=== PATIENT | female | born 1975 | race Caucasian/White ===

== ENCOUNTER → 2017-08-25 07:20 | Outpatient (CLI) | payer OTHER, SELFPAY ==
--- NOTE | 2017-08-25 07:23 | CT_ITS ---
STUDY: CT MAXILLOFACIAL SINUSES REASON FOR EXAM: Female, 42 years old. Chronic sinusitis. RADIATION DOSAGE (If Supplied By Facility): CTDIvol = ( 33.06 ) mGy, DLP = ( 858.64 ) mGycm TECHNIQUE: The patient was scanned in a multi detector CT scanner. High resolution axial imaging was performed without the administration of intravenous contrast material. Sagittal and coronal images were reconstructed. Individualized dose optimization techniques were used for this CT. COMPARISON: Prior comparison studies are not available for review at this time. FINDINGS: FRONTAL SINUSES: Normal aeration, without mucosal inflammatory disease. ETHMOIDAL SINUSES: Normal aeration, without mucosal inflammatory disease. MAXILLARY SINUSES: Normal aeration, without mucosal inflammatory disease. SPHENOIDAL SINUSES: The right sphenoid sinus is small in size, while the left sphenoid extends across the midline. There is mild mucoperiosteal thickening at the anterior inferior margin of the left sphenoid sinus. Minor mucoperiosteal thickening in the posterior superior nasal passages. There is patency of the bilateral maxillary infundibuli with normal uncinate processes, ethmoid bullae, and hiatus semilunaris. Normal bilateral middle turbinates. Normal bilateral inferior turbinates. Normal midline nasal septum. There is patency of the bilateral nasal airways. The visualized osseous structures are normal. The visualized bilateral orbital contents are normal. CT/Sinus/Facial Bone IMPRESSION: Mild mucoperiosteal thickening in the anterior margin of the hypertrophied left sphenoid sinus. Electronically Signed: Fran Sorenson MD at 9:18 EDT , Service support ,
== END ==
PROVIDERS: Family Provider Family Medicine; PCP Family Medicine; Visit Provider Otolaryngology
DX: J32.9 Chronic sinusitis, unspecified (principal)
CPT/HCPCS: 70486

== ENCOUNTER → 2018-03-10 16:18 | Outpatient (CLI) | payer OTHER, SELFPAY ==
[2017-01-25 09:18] VITALS: BMI 20.3
[2018-03-10 17:57] LABS: Absolute Neutrophil Count 5.6 X10^3/uL (2.0-7.7); Basophil# 0.05 X10^3/uL; Basophil% 0.5 % (0-1); Eosinophil# 0.29 X10^3/uL; Eosinophils% 2.7 % (0-5); Hematocrit 39.5 % (37-47); Hemoglobin 13.1 g/dl (12.0-15.0); Lymphocyte % 37.2 % (19-41); Mean Corp Hgb Conc 33.2 g/gl (32-36); Mean Corpuscular Hgb 30.1 pg (27.0-32.0); Mean Corpuscular Volume 90.8 fL (81-99); Mean Platelet Vol. 10.6 fl (6.2-12.0); Monocyte# 0.79 X10^3/uL; Monocyte% 7.3 % (0-10); Platelet Count 308 K/mm3 (150-450); RBC Distribution Width CV 12.3 % (11.6-14.6); RBC Distribution Width SD 41.2 fl (35.1-43.9); Red Blood Count 4.35 M/mm3 (4.2-5.4); White Blood Count 10.8 K/mm3 (4.4-11.0)
[2018-03-10 18:02] LABS: POSITIVE COUNT NO; POSITIVE DIFFERENTIAL NO; POSITIVE MORPHOLOGY NO
[2018-03-10 18:19] LABS: Internal QC Validated? YES +Cl - CLEAR BKGD; Monotest Negative (Negative)
[2018-03-10 18:20] LABS: Vitamin B12 838 pg/mL (211-911); Vitamin D,25 Hydroxy 33.3 ng/mL (29.95-100.01)
[2018-03-10 18:33] LABS: Erythrocyte Sedimentation Rate 4 mm/hr (0-20)
[2018-03-10 19:16] LABS: ALB/GLOB Ratio 1.2 RATIO (0.9-2.4); AST(SGOT) 13 U/L (15-37); Alanine Aminotransfer ALT/SGPT 24 U/L (13-56); Albumin, Serum 3.7 g/dL (3.2-5.0); Alkaline Phosphatase 58 U/L (45-117); Anion Gap 7 (5-15); BUN 11 mg/dL (7-18); BUN/Creat Ratio 17.2 RATIO (10-20); CRP < 2.90 mg/L (0.0-3.0); Calcium,Total 8.4 mg/dL (8.5-10.1); Chloride 104 mmol/L (98-107); Creatinine, Serum 0.64 mg/dL (0.55-1.02); EST Glomerular Filtration Rate 108 mL/min (>60); Est Glom Filt Rate - Afr Amer 130 mL/min (>60); Ferritin 101 ng/mL (8-252); Globulin 3.1 g/dL (2.2-4.2); Glucose 81 mg/dL (74-106); Iron 68 ug/dL (50-170); Potassium 3.4 mmol/L (3.5-5.1); Protein, Total 6.8 g/dL (6.4-8.2); Sodium Level 138 mmol/L (136-145); Thyroid Stim Hormone (TSH) 1.46 uIU/mL (0.358-3.74)
[2018-03-13 11:14] LABS: EBV Acute VCA IgM < 36.0 U/mL (0.0-35.9); EBV Early Antigen IgG <9.0 U/mL (0.0-8.9)
== END ==
PROVIDERS: Family Provider Family Medicine; PCP Family Medicine; Visit Provider Family Medicine
DX: R53.83 Other fatigue (principal)
CPT/HCPCS: 36415; 80053; 82306; 82533; 82607; 82728; 83540; 84443; 85025; 85652; 86140; 86308; 86663; 86664; 86665

== ENCOUNTER → 2018-03-16 16:58 | Outpatient (CLI) | payer OTHER, SELFPAY ==
--- NOTE | 2018-03-16 17:30 | MRI_ITS ---
STUDY: MRI BRAIN WITH AND WITHOUT CONTRAST REASON FOR EXAM: Female, 42 years old. General weakness. Weakness the left face, fingers and toes. Left facial pain. 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 TECHNIQUE: Standardized multiplanar fat and water weighted pulse sequences were obtained. 5 ml of Gadavist contrast material was administered intravenously for the contrast portion of the examination. COMPARISON: CT temporal bones 08/25/2017. FINDINGS: The left canal wall up mastoidectomy is better seen on the CT of the temporal bones of 08/25/2017. No suspicious abnormality of the internal auditory canals. No enhancing lesions of the 7th and 8th nerve bundles. No enhancing lesions in the middle ear spaces. Normal size of the ventricles and extra-axial spaces for the patient's age. Normal white matter tracts of the supratentorial brain. Normal bilateral basal ganglia. Normal thalami. There is no extra-axial fluid accumulation. Normal flow voids within the major intracranial circulation suggesting patency by spin echo criteria. Normal venous enhancement. There is no enhancing intra-axial or extra-axial abnormality. Normal sella turcica, pituitary gland, infundibular stalk, optic chiasm and hypothalamus. Normal tectal plate and pineal gland. Normal midbrain, maria elena and medulla. Normal cerebellum. Normal basal cisterns. Normal right temporal bone. Minimal mucosal edema in the residual left inferior temporal mastoid air cells. The bulk of the left mastoiditis postsurgically absent from previous canal wall up mastoidectomy. Normal bilateral internal auditory canals. No demonstrated orbital abnormality, within the constraints of a routine brain study. Normal visualized paranasal sinuses. Normal calvarium and skull base. Normal visualized soft tissue structures. Normal visualized upper cervical spine. MRI/Brain W/WO Contrast IMPRESSION: 1. Normal MRI of the brain and internal auditory canals with and without contrast. 2. Minimal mucosal edema in the residual left temporal mastoid air cells caudal to the left canal wall up mastoidectomy site but unchanged when compared to CT of the temporal bones of 08/25/2017. If recurrent cholesteatoma is a clinical consideration, follow-up CT of the temporal bones will be more helpful. Electronically Signed: Kenndey Figueredo MD at 15:40 EST , Service support ,
== END ==
PROVIDERS: Family Provider Family Medicine; PCP Family Medicine; Referring Provider Family Medicine; Visit Provider Family Medicine
DX: R20.0 Anesthesia of skin (principal); R42 Dizziness and giddiness
CPT/HCPCS: 70553; A9585

== ENCOUNTER → 2018-04-05 09:46 | Outpatient (CLI) | payer OTHER, SELFPAY ==
[2017-01-25 09:18] VITALS: BMI 20.3
[2018-04-05 09:50] LABS: Lyme Ab Screen Interpretation REF LAB
[2018-04-05 12:23] LABS: Absolute Lymphocyte Count 2.08 X10^3/ul (0.83-4.51); Absolute Neutrophil Count 3.7 X10^3/uL (2.0-7.7); Basophil# 0.06 X10^3/uL; Basophil% 0.9 % (0-1); Eosinophil# 0.09 X10^3/uL; Eosinophils% 1.4 % (0-5); Hematocrit 39.9 % (37-47); Hemoglobin 13.1 g/dl (12.0-15.0); Lymphocyte # 2.08 X10^3/ul (4.0); Lymphocyte % 32.1 % (19-41); Mean Corp Hgb Conc 32.8 g/gl (32-36); Mean Corpuscular Hgb 30.3 pg (27.0-32.0); Mean Corpuscular Volume 92.1 fL (81-99); Mean Platelet Vol. 11.2 fl (6.2-12.0); Monocyte# 0.51 X10^3/uL; Monocyte% 7.9 % (0-10); Neutrophil # 3.73 X10^3/uL (2.7-7.7); Neutrophil % 57.7 % (47-70); Platelet Count 302 K/mm3 (150-450); RBC Distribution Width CV 12.7 % (11.6-14.6); RBC Distribution Width SD 43.1 fl (35.1-43.9); Red Blood Count 4.33 M/mm3 (4.2-5.4); White Blood Count 6.5 K/mm3 (4.4-11.0)
[2018-04-05 12:32] LABS: Erythrocyte Sedimentation Rate 5 mm/hr (0-20); POSITIVE COUNT NO; POSITIVE DIFFERENTIAL NO; POSITIVE MORPHOLOGY NO
[2018-04-05 12:44] LABS: ALB/GLOB Ratio 1.2 RATIO (0.9-2.4); AST(SGOT) 15 U/L (15-37); Alanine Aminotransfer ALT/SGPT 26 U/L (13-56); Alkaline Phosphatase 68 U/L (45-117); Anion Gap 9 (5-15); BUN 15 mg/dL (7-18); BUN/Creat Ratio 20.4 RATIO (10-20); CPK Total, Creatine Kinase 40 U/L (26-192); CRP < 2.90 mg/L (0.0-3.0); Calcium,Total 8.8 mg/dL (8.5-10.1); Chloride 107 mmol/L (98-107); Creatinine, Serum 0.74 mg/dL (0.55-1.02); EST Glomerular Filtration Rate 92 mL/min (>60); Est Glom Filt Rate - Afr Amer 111 mL/min (>60); Ferritin 94 ng/mL (8-252); Globulin 3.3 g/dL (2.2-4.2); Glucose 68 mg/dL (74-106); Iron 99 ug/dL (50-170); Magnesium 2.3 mg/dL (1.6-2.6); Potassium 3.7 mmol/L (3.5-5.1); Protein, Total 7.3 g/dL (6.4-8.2); Rheumatoid Factor < 10.0 IU/mL (<15); Sodium Level 142 mmol/L (136-145); Uric Acid 3.6 mg/dL (2.6-6.0)
[2018-04-08 09:56] LABS: ANTINUCLEAR ANTIBODIES DIRECT Negative (Negative)
[2018-04-13 12:04] LABS: EBV Acute VCA IgM < 36.0 U/mL (0.0-35.9); EBV Early Antigen IgG <9.0 U/mL (0.0-8.9); Lyme Scn Total Ab w/Rflx <0.91 ISR (0.00-0.90)
--- OUTSIDE RECORDS SUMMARY | 2018-06-07 11:32 | XMS RPT_ITS ---
:1975 Author Organization OH[facility] Care Team Providers Name Role Phone MELANY MARIE Attending Unavailable PROVIDER, UNKNOWN Referring Unavailable No, PCP Primary Care Unavailable Juan Cheema Attending Unavailable Juan Cheema Primary Care Unavailable Juan Cheema Attending Unavailable Juan Cheema Referring Unavailable uJan Cheema Primary Care Unavailable Juan Cheema Attending Unavailable Juan Cheema Primary Care Unavailable Josh Pineda Attending Unavailable Josh Pineda Referring Unavailable Juan Cheema Primary Care Unavailable PROBLEMS PROBLEMS DATE TYPE CONDITION / CODE ATTENDING STATUS SOURCE 01/31/2018 Admitting Encntr MELANY Ponce Active [facility] 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) 01/31/2018 Admitting Family history of MELANY MARIE Active [facility] 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/2017 Unknown J32.9 - Chronic Josh Pineda Active [place] sinusitis, Community unspecified / Hospital J32.9(ICD-10) Repository PROCEDURES PROCEDURES No Procedure Records FoundRESULTS RESULTS CBC W/DIFF, AUTOMATED Collected: 04/05/2018 Status: F Source: [place] 9:47 AM [facility] REPOSITORY TYPE CODE TESTS RESULT OUT OF RANGE REFERENCE UNITS LAB L100.1000 4.4-11.0 K/mm3 Normal WBC 6.5 LAB L100.1200 4.2-5.4 M/mm3 Normal RBC 4.33 LAB L100.1300 12.0-15.0 g/dl Normal HGB 13.1 LAB L100.1400 37-47 % Normal HCT 39.9 LAB L100.1500 81-99 fL Normal MCV 92.1 LAB L100.1600 27.0-32.0 pg Normal MCH 30.3 LAB L100.1700 32-36 g/gl Normal MCHC 32.8 LAB L100.1810 11.6-14.6 % Normal RDW CV 12.7 LAB L100.1820 35.1-43.9 fl Normal RDW SD 43.1 LAB L100.1900 150-450 K/mm3 Normal PLT 302 LAB L100.2000 6.2-12.0 fl Normal MPV 11.2 LAB L100.2100 47-70 % Normal NEUT% 57.7 LAB L100.2200 19-41 % Normal LY% 32.1 LAB L100.2300 0-10 % Normal MONO% 7.9 LAB L100.2400 0-5 % Normal EO% 1.4 LAB L100.2500 0-1 % Normal BASO% 0.9 LAB L100.2550 0.0-0.9 % Normal IM GRAN % 0.000 Result Comment: IG% - Immature Granulocytes (promyelocytes, myelocytes and metamyelocytes) > 1% indicates that a LEFT SHIFT is Present. LAB L100.2620 2.0-7.7 X10 3/uL Normal Absolute Neut 3.7 LAB L100.2720 0.83-4.51 X10 3/ul Normal Absolute Lymph 2.08 Performed By: #### L100.0100, L101.9900 #### [facility] [address] [place], [address] ERYTHROCYTE SED RATE Collected: 04/05/2018 Status: F Source: [place] 9:47 AM [facility] REPOSITORY TYPE CODE TESTS RESULT OUT OF RANGE REFERENCE UNITS LAB L102.0000 0-20 mm/hr Normal SED RATE 5 Performed By: #### L100.0100, L101.9900 #### [facility] [address] [place], [address] VITAMIN D,25 HYDROXY Collected: 04/05/2018 Status: F Source: [place] 9:47 AM [facility] REPOSITORY TYPE CODE TESTS RESULT OUT OF RANGE REFERENCE UNITS LAB L506.1000 29.95-100.01 ng/mL Normal Vitamin D 37.0 25-OH Result Comment: Vitamin D 25(OH) Status Range Deficiency <20 ng/mL (50nmol/L) Insuffciency 20 - 30 ng/mL (50 - 75 nmol/L) Sufficiency 30 - 100 ng/mL (75 - 250 nmol/L) Toxicity >100 ng/mL (>250 nmol/L) Performed By: #### L506.1000 #### [facility] [address] [place], [address] COMPREHENSIVE METABOLIC Collected: 04/05/2018 Status: F [facility] AM [facility] REPOSITORY TYPE CODE TESTS RESULT OUT OF RANGE REFERENCE UNITS LAB L501.0100 74-106 mg/dL Low GLU 68 Result Comment: Please note revised GLUCOSE reference range effective 2017. LAB L501.1000 7-18 mg/dL Normal BUN 15 LAB L501.1100 0.55-1.02 mg/dL Normal CREAT,SERUM 0.74 Result Comment: The validity of the calculated GFR AND GFRAA in patients over 70 years has not been determined. Clinical correlation is essential. LAB L501.1110 >60 mL/min Normal EST GFR 92 Result Comment: Non- GFR Calc LAB L501.1115 >60 mL/min Normal EST GFR - AA 111 Result Comment: GFR Calc LAB L501.1300 10-20 RATIO High BUN/CRE 20.4 LAB L501.1500 6.4-8.2 g/dL T Normal PROT 7.3 LAB L501.1800 3.2-5.0 g/dL Normal ALB 4.0 LAB L501.1950 2.2-4.2 g/dL Normal GLOB 3.3 LAB L501.2000 0.9-2.4 RATIO Normal A/G 1.2 LAB L501.2200 8.5-10.1 mg/dL CA Normal 8.8 LAB L501.4100 15-37 U/L Normal AST 15 LAB L501.4305 45-117 U/L Normal ALK P 68 LAB L501.4405 13-56 U/L Normal ALT 26 LAB L501.4600 0.20-1.00 mg/dL T Normal BILI 0.50 LAB L501.5300 136-145 mmol/L NA Normal 142 LAB L501.5600 3.5-5.1 mmol/L K Normal 3.7 LAB L501.5900 98-107 mmol/L CL Normal 107 LAB L501.6100 21.0-32.0 mmol/L Normal CO2 26.0 LAB L501.6200 5-15 Normal GAP 9 Performed By: #### L500.4050, L501.1400, L501.3620, L501.5200, L501.6710, L501.9520, L503.6150, L503.6550, L505.7010 #### [facility] [address] [place], [address] URIC ACID Collected: 04/05/2018 Status: F Source: [place] 9:47 AM [facility] REPOSITORY TYPE CODE TESTS RESULT OUT OF RANGE REFERENCE UNITS LAB L501.1400 2.6-6.0 mg/dL Normal URIC 3.6 Result Comment: The drugs N-Acetylcysteine and Metamizole may falsely depress this assay. Performed By: #### L500.4050, L501.1400, L501.3620, L501.5200, L501.6710, L501.9520, L503.6150, L503.6550, L505.7010 #### [facility] [address] [place], [address] CPK TOTAL, CREATINE Collected: 04/05/2018 Status: F Source: [place] 9:47 AM [facility] REPOSITORY TYPE CODE TESTS RESULT OUT OF RANGE REFERENCE UNITS LAB L501.3620 26-192 U/L Normal CPK TOTAL 40 Performed By: #### L500.4050, L501.1400, L501.3620, L501.5200, L501.6710, L501.9520, L503.6150, L503.6550, L505.7010 #### [facility] [address] [place], [place], [address] MAGNESIUM Collected: 04/05/2018 Status: F Source: [place] 9:47 AM [facility] REPOSITORY TYPE CODE TESTS RESULT OUT OF RANGE REFERENCE UNITS LAB L501.5200 1.6-2.6 mg/dL Normal MG 2.3 Performed By: #### L500.4050, L501.1400, L501.3620, L501.5200, L501.6710, L501.9520, L503.6150, L503.6550, L505.7010 #### [facility] [address] [place], [place], [address] CRP Collected: 04/05/2018 Status: F Source: [place] 9:47 AM [facility] REPOSITORY TYPE CODE TESTS RESULT OUT OF RANGE REFERENCE UNITS LAB L501.6710 0.0-3.0 mg/L Normal < 2.90 C-REACTIVE PROT Result Comment: C-Reactive Protein (CRP) provides useful information for the diagnosis, therapy and monitoring of inflammatory processes and associated diseases. For the evaluation of Relative Risk for Cardiovascular Disease, a High Sensitivity CRP (HSCRP) should be ordered. Performed By: #### L500.4050, L501.1400, L501.3620, L501.5200, L501.6710, L501.9520, L503.6150, L503.6550, L505.7010 #### [facility] [address] [place], [place], [address] THYROID STIM HORMONE Collected: 04/05/2018 Status: F Source: [place] ([facility]) 9:47 AM [facility] REPOSITORY TYPE CODE TESTS RESULT OUT OF RANGE REFERENCE UNITS LAB L501.9520 0.358-3.74 uIU/mL Normal TSH 1.60 Performed By: #### L500.4050, L501.1400, L501.3620, L501.5200, L501.6710, L501.9520, L503.6150, L503.6550, L505.7010 #### [facility] [place], [place], [id number] IRON Collected: 04/05/2018 Status: F Source: [place] 9:47 AM [facility] REPOSITORY TYPE CODE TESTS RESULT OUT OF RANGE REFERENCE UNITS LAB L503.6150 50-170 ug/dL Normal IRON 99 Performed By: #### L500.4050, L501.1400, L501.3620, L501.5200, L501.6710, L501.9520, L503.6150, L503.6550, L505.7010 #### [facility] [address] [place] [address]. [place], [place], [id number] FERRITIN Collected: 04/05/2018 Status: F Source: [place] 9:47 AM [facility] REPOSITORY TYPE CODE TESTS RESULT OUT OF RANGE REFERENCE UNITS LAB L503.6550 8-252 ng/mL Normal FERRITIN 94 Performed By: #### L500.4050, L501.1400, L501.3620, L501.5200, L501.6710, L501.9520, L503.6150, L503.6550, L505.7010 #### [facility] [place], [place], [id number] RHEUMATOID FACTOR Collected: 04/05/2018 Status: F Source: [place] 9:47 AM [facility] REPOSITORY TYPE CODE TESTS RESULT OUT OF RANGE REFERENCE UNITS LAB L505.7010 <15 IU/mL Normal RHEUMATOID FAC < 10.0 Performed By: #### L500.4050, L501.1400, L501.3620, L501.5200, L501.6710, L501.9520, L503.6150, L503.6550, L505.7010 #### [facility] [address] [place], [address] ANTINUCLEAR ANTIBODIES Collected: 04/05/2018 Status: F Source: [place] DIRECT 9:47 AM [facility] REPOSITORY TYPE CODE TESTS RESULT OUT OF RANGE REFERENCE UNITS LAB L3100.5475 Negative Normal Negative LEO-DIRECT Result Comment: Performed at: - [facility] [address] [id number] [employer] Wall Applicator: Kit Person PhD, Phone: [phone] Performed By: #### L3100.5475 #### [facility] (refer to report for specific site) refer to report for address and phone number BRAIN W/WO CONTRAST Observed: 03/16/2018 Status: F Source: [place] 5:05 PM [facility] REPOSITORY [facility] Services [address] [place] [address] Brain W/WO Contrast MR#: [id number] Acct: [id number] Name: SOLO CRANDALL Rep #: [id number] : 1975 F 42 From: Kennedy Figueredo MD PCP: Juan Cheema MD Status: REG CLI Study: Brain W/WO Contrast Date of Exam: 03/16/18 Exam# [id number] Ordering Dr: Ehsan Cheema MD STUDY: MRI BRAIN WITH AND WITHOUT CONTRAST REASON FOR EXAM: Female, 42 years old. General weakness. Weakness the left face, fingers and toes. Left facial pain. 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 TECHNIQUE: Standardized multiplanar fat and water weighted pulse sequences were obtained. 5 ml of Gadavist contrast material was administered intravenously for the contrast portion of the examination. COMPARISON: CT temporal bones 08/25/2017. FINDINGS: The left canal wall up mastoidectomy is better seen on the CT of the temporal bones of 08/25/2017. No suspicious abnormality of the internal auditory canals. No enhancing lesions of the 7th and 8th nerve bundles. No enhancing lesions in the middle ear spaces. Normal size of the ventricles and extra-axial spaces for the patient's age. Normal white matter tracts of the supratentorial brain. Normal bilateral basal ganglia. Normal thalami. There is no extra-axial fluid accumulation. Normal flow voids within the major intracranial circulation suggesting patency by spin echo criteria. Normal venous enhancement. There is no enhancing intra-axial or extra-axial abnormality. Normal sella turcica, pituitary gland, infundibular stalk, optic chiasm and hypothalamus. Normal tectal plate and pineal gland. Normal midbrain, maria elena and medulla. Normal cerebellum. Normal basal cisterns. Normal right temporal bone. Minimal mucosal edema in the residual left inferior temporal mastoid air cells. The bulk of the left mastoiditis postsurgically absent from previous canal wall up mastoidectomy. Normal bilateral internal auditory canals. No demonstrated orbital abnormality, within the constraints of a routine brain study. Normal visualized paranasal sinuses. Normal calvarium and skull base. Normal visualized soft tissue structures. Normal visualized upper cervical spine. MRI/Brain W/WO Contrast IMPRESSION: 1. Normal MRI of the brain and internal auditory canals with and without contrast. 2. Minimal mucosal edema in the residual left temporal mastoid air cells caudal to the left canal wall up mastoidectomy site but unchanged when compared to CT of the temporal bones of 08/25/2017. If recurrent cholesteatoma is a clinical consideration, follow-up CT of the temporal bones will be more helpful. Electronically Signed: Kennedy Figueredo MD at 15:40 EST , Service support , CC: Juan Cheema MD Medical Asst: Signed PROGRESS Observed: 03/12/2018 Status: COMPLETED Source: [place] 9:39 AM [facility] REPOSITORY HNO ID: [id number] Author: Jewell Erwin Service: (none) Author Type: Nurse Practitioner Type: Progress Notes Filed: 03/12/2018 10:34 AM Note Text: Subjective HPI Solo Crandall is a 42 year old female who presents today for CC of jaw/tooth pain. This started 5 days ago. Has tried otc medication with mild relief. Symptoms are worsened by chewing. Risk factors several cavities, hx of TMJ. Denies possibility of being . nonsmoker. .Patient presents with: Pain: jaw No past medical history on file. No past surgical history on file. ALLERGIES Asa [Aspirin]; Sulfa (Sulfonamide Antibiotics) MEDICATIONS CETIRIZINE HCL (ZYRTEC ORAL) Take by mouth. IBUPROFEN ORAL Take by mouth. amoxicillin (AMOXIL) 875 mg tablet Take 1 tablet by mouth twice daily for 10 days. No family history on file. Social History Substance Use Topics - Smoking status: Former Smoker - Smokeless tobacco: Never Used - Alcohol use Not on file Review of Systems Constitutional: Negative for chills, fever and weight loss. HENT: Positive for congestion and sore throat. Negative for ear pain and nosebleeds. Respiratory: Positive for cough. Negative for shortness of breath and wheezing. Musculoskeletal: Negative for neck pain. Objective Blood pressure 102/60, pulse 92, temperature 36.3 ?C (97.4 ?F), temperature source Left Tympanic, weight 53.5 kg (118 lb), SpO2 99 %. Physical Exam Constitutional: She is oriented to person, place, and time and well-developed, well-nourished, and in no distress. Non-toxic appearance. She does not have a sickly appearance. No distress. HENT: Head: Normocephalic and atraumatic. Right Ear: Hearing, tympanic membrane, external ear and ear canal normal. Left Ear: Hearing, tympanic membrane, external ear and ear canal normal. Nose: Nose normal. Mouth/Throat: Uvula is midline, oropharynx is clear and moist and mucous membranes are normal. Eyes: Pupils are equal, round, and reactive to light. Conjunctivae and lids are normal. Right eye exhibits no discharge. Left eye exhibits no discharge. No scleral icterus. Neck: Trachea normal and normal range of motion. Neck supple. Cardiovascular: Normal rate, regular rhythm and normal heart sounds. Pulmonary/Chest: Effort normal and breath sounds normal. Lymphadenopathy: She has no cervical adenopathy. Neurological: She is alert and oriented to person, place, and time. Skin: No rash noted. She is not diaphoretic. ASSESSMENT/PLAN: 1. Tooth pain - ICD9: 525.9, ICD10: K08.89 Take medication as ordered See dentist jaciel Follow up if signs of infection worsen Possibly flair of TMJ, continue with dentist f/u - AMOXICILLIN 875 MG TABLET Prescription instructions reviewed with patient as applicable. Patient advised if symptoms do not improve or if symptoms worsen sooner, to contact the office for further evaluation by their primary care physician. Potential red flag symptoms discussed with the patient. Reviewed appropriate action plan to take if red flag symptoms occur. Patient agreeable to treatment plan. Jewell Erwin APRN.CNP CNOV Observed: 03/12/2018 Status: COMPLETED Source: [place] 9:30 AM [facility] REPOSITORY Office Visit (WSTR) SOLO CRANDALL ([id number]) 1975 F Date Time Provider Department 03/12/18 9:30 AM JEWELL ERWIN (BRY[facility]) [facility] During your visit today, we recorded the following information about you: Temperature Pulse Blood pressure Weight 97.4 degrees 92/minute 102/60 53.5 kg Jewell Erwin APRN.CNP 03/12/2018 10:34 AM Signed Subjective HPI oSlo Huynhland is a 42 year old female who presents today for CC of jaw/tooth pain. This started 5 days ago. Has tried otc medication with mild relief. Symptoms are worsened by chewing. Risk factors several cavities, hx of TMJ. Denies possibility of being . nonsmoker. .Patient presents with: Pain: jaw No past medical history on file. No past surgical history on file. ALLERGIES Asa [Aspirin]; Sulfa (Sulfonamide Antibiotics) MEDICATIONS CETIRIZINE HCL (ZYRTEC ORAL) Take by mouth. IBUPROFEN ORAL Take by mouth. amoxicillin (AMOXIL) 875 mg tablet Take 1 tablet by mouth twice daily for 10 days. No family history on file. Social History Substance Use Topics - Smoking status: Former Smoker - Smokeless tobacco: Never Used - Alcohol use Not on file Review of Systems Constitutional: Negative for chills, fever and weight loss. HENT: Positive for congestion and sore throat. Negative for ear pain and nosebleeds. Respiratory: Positive for cough. Negative for shortness of breath and wheezing. Musculoskeletal: Negative for neck pain. Objective Blood pressure 102/60, pulse 92, temperature 36.3 ?C (97.4 ?F), temperature source Left Tympanic, weight 53.5 kg (118 lb), SpO2 99 %. Physical Exam Constitutional: She is oriented to person, place, and time and well-developed, well-nourished, and in no distress. Non-toxic appearance. She does not have a sickly appearance. No distress. HENT: Head: Normocephalic and atraumatic. Right Ear: Hearing, tympanic membrane, external ear and ear canal normal. Left Ear: Hearing, tympanic membrane, external ear and ear canal normal. Nose: Nose normal. Mouth/Throat: Uvula is midline, oropharynx is clear and moist and mucous membranes are normal. Eyes: Pupils are equal, round, and reactive to light. Conjunctivae and lids are normal. Right eye exhibits no discharge. Left eye exhibits no discharge. No scleral icterus. Neck: Trachea normal and normal range of motion. Neck supple. Cardiovascular: Normal rate, regular rhythm and normal heart sounds. Pulmonary/Chest: Effort normal and breath sounds normal. Lymphadenopathy: She has no cervical adenopathy. Neurological: She is alert and oriented to person, place, and time. Skin: No rash noted. She is not diaphoretic. ASSESSMENT/PLAN: 1. Tooth pain - ICD9: 525.9, ICD10: K08.89 Take medication as ordered See dentist jaciel Follow up if signs of infection worsen Possibly flair of TMJ, continue with dentist f/u - AMOXICILLIN 875 MG TABLET Prescription instructions reviewed with patient as applicable. Patient advised if symptoms do not improve or if symptoms worsen sooner, to contact the office for further evaluation by their primary care physician. Potential red flag symptoms discussed with the patient. Reviewed appropriate action plan to take if red flag symptoms occur. Patient agreeable to treatment plan. Jewell Erwin APRN.BRYANT Erwin APRN.BRYANT 03/12/2018 9:49 AM Signed ASSESSMENT/PLAN: 1. Tooth pain - ICD9: 525.9, ICD10: K08.89 Take medication as ordered See dentist jaciel Follow up if signs of infection worsen - AMOXICILLIN 875 MG TABLET Referring Provider: SELF [200] Allergies As of Date: 03/12/2018 Noted Allergy Reaction ASA (ASPIRIN) 01/03/2013 12 - Shortness of Breath SULFA (SULFONAMIDE ANTIBIOTICS) 01/03/2013 2 - Rash Date Reviewed: 03/12/2018 Reviewed by: Jewell (Bryant) - Fully Assessed Reason for Visit: Pain [78] Cmt: jaw Primary Visit Diagnosis:Tooth pain [K08.89] Order(s):amoxicillin (AMOXIL) 875 mg tabletTake 1 tablet by mouth twice daily for 10 days.Disp: 20 tabletRfl: 0 Prescriptions as of 03/12/2018 Sig: ZYRTEC ORAL Take by mouth. IBUPROFEN ORAL Take by mouth. AMOXICILLIN 875 MG TABLET Take 1 tablet by mouth twice * Problem List As Of Date: 03/12/2018 (None) Other instructions from your clinician: ASSESSMENT/PLAN: 1. Tooth pain - ICD9: 525.9, ICD10: K08.89 Take medication as ordered See dentist jaciel Follow up if signs of infection worsen - AMOXICILLIN 875 MG TABLET Prescriptions ordered this encounter Disp Refills Start End AMOXICILLIN 875 MG TABLET 20 t* 0 03/12/2018 03/22/2018 Route: ORAL Sig: Take 1 tablet by mouth twice daily for 10 days. Encounter Status:Closed by JEWELL ERWIN CNP on 03/12/18 CBC W/DIFF, AUTOMATED Collected: 03/10/2018 Status: F Source: [place] 4:19 PM [facility] REPOSITORY TYPE CODE TESTS RESULT OUT OF RANGE REFERENCE UNITS LAB L100.1000 4.4-11.0 K/mm3 Normal WBC 10.8 LAB L100.1200 4.2-5.4 M/mm3 Normal RBC 4.35 LAB L100.1300 12.0-15.0 g/dl Normal HGB 13.1 LAB L100.1400 37-47 % Normal HCT 39.5 LAB L100.1500 81-99 fL Normal MCV 90.8 LAB L100.1600 27.0-32.0 pg Normal MCH 30.1 LAB L100.1700 32-36 g/gl Normal MCHC 33.2 LAB L100.1810 11.6-14.6 % Normal RDW CV 12.3 LAB L100.1820 35.1-43.9 fl Normal RDW SD 41.2 LAB L100.1900 150-450 K/mm3 Normal PLT 308 LAB L100.2000 6.2-12.0 fl Normal MPV 10.6 LAB L100.2100 47-70 % Normal NEUT% 52.0 LAB L100.2200 19-41 % Normal LY% 37.2 LAB L100.2300 0-10 % Normal MONO% 7.3 LAB L100.2400 0-5 % Normal EO% 2.7 LAB L100.2500 0-1 % Normal BASO% 0.5 LAB L100.2550 0.0-0.9 % Normal IM GRAN % 0.300 Result Comment: IG% - Immature Granulocytes (promyelocytes, myelocytes and metamyelocytes) > 1% indicates that a LEFT SHIFT is Present. LAB L100.2620 2.0-7.7 X10 3/uL Normal Absolute Neut 5.6 LAB L100.2720 0.83-4.51 X10 3/ul Normal Absolute Lymph 4.00 Performed By: #### L100.0100, L700.5500, L503.0105, L506.1000, L101.9900, L500.4050, L501.9520, L503.6150, L503.6550 #### [facility] [address] [facility] [place], [place], [id number] MONOTEST Collected: 03/10/2018 Status: F Source: [place] 4:19 PM [facility] REPOSITORY TYPE CODE TESTS RESULT OUT OF RANGE REFERENCE UNITS LAB L700.5700 Negative Normal MONO Negative Performed By: #### L100.0100, L700.5500, L503.0105, L506.1000, L101.9900, L500.4050, L501.9520, L503.6150, L503.6550 #### [facility] [address] [facility] [place], [place], [id number] VITAMIN B12 Collected: 03/10/2018 Status: F Source: [place] 4:19 PM [facility] REPOSITORY TYPE CODE TESTS RESULT OUT OF RANGE REFERENCE UNITS LAB L503.0105 211-911 pg/mL Normal Vitamin B12 838 Performed By: #### L100.0100, L700.5500, L503.0105, L506.1000, L101.9900, L500.4050, L501.9520, L503.6150, L503.6550 #### [facility] [address] [place], [place], [id number] VITAMIN D,25 HYDROXY Collected: 03/10/2018 Status: F Source: [place] 4:19 PM [facility] REPOSITORY TYPE CODE TESTS RESULT OUT OF RANGE REFERENCE UNITS LAB L506.1000 29.95-100.01 ng/mL Normal Vitamin D 33.3 25-OH Result Comment: Vitamin D 25(OH) Status Range Deficiency <20 ng/mL (50nmol/L) Insuffciency 20 - 30 ng/mL (50 - 75 nmol/L) Sufficiency 30 - 100 ng/mL (75 - 250 nmol/L) Toxicity >100 ng/mL (>250 nmol/L) Performed By: #### L100.0100, L700.5500, L503.0105, L506.1000, L101.9900, L500.4050, L501.9520, L503.6150, L503.6550 #### [facility] [address] [place], [place], [id number] ERYTHROCYTE SED RATE Collected: 03/10/2018 Status: F Source: [place] 4:19 PM [facility] REPOSITORY TYPE CODE TESTS RESULT OUT OF RANGE REFERENCE UNITS LAB L102.0000 0-20 mm/hr Normal SED RATE 4 Performed By: #### L100.0100, L700.5500, L503.0105, L506.1000, L101.9900, L500.4050, L501.9520, L503.6150, L503.6550 #### [facility] [address] [place], [place], [id number] COMPREHENSIVE METABOLIC Collected: 03/10/2018 Status: F Source: [place] 4:19 PM [facility] REPOSITORY TYPE CODE TESTS RESULT OUT OF RANGE REFERENCE UNITS LAB L501.0100 74-106 mg/dL Normal GLU 81 Result Comment: Please note revised GLUCOSE reference range effective 2017. LAB L501.1000 7-18 mg/dL Normal BUN 11 LAB L501.1100 0.55-1.02 mg/dL Normal CREAT,SERUM 0.64 Result Comment: The validity of the calculated GFR AND GFRAA in patients over 70 years has not been determined. Clinical correlation is essential. LAB L501.1110 >60 mL/min Normal EST GFR 108 Result Comment: Non- GFR Calc LAB L501.1115 >60 mL/min Normal EST GFR - AA 130 Result Comment: GFR Calc LAB L501.1300 10-20 RATIO Normal BUN/CRE 17.2 LAB L501.1500 6.4-8.2 g/dL T Normal PROT 6.8 LAB L501.1800 3.2-5.0 g/dL Normal ALB 3.7 LAB L501.1950 2.2-4.2 g/dL Normal GLOB 3.1 LAB L501.2000 0.9-2.4 RATIO Normal A/G 1.2 LAB L501.2200 8.5-10.1 mg/dL Low CA 8.4 LAB L501.4100 15-37 U/L Low AST 13 LAB L501.4305 45-117 U/L Normal ALK P 58 LAB L501.4405 13-56 U/L Normal ALT 24 LAB L501.4600 0.20-1.00 mg/dL T Normal BILI 0.40 LAB L501.5300 136-145 mmol/L NA Normal 138 LAB L501.5600 3.5-5.1 mmol/L Low K 3.4 LAB L501.5900 98-107 mmol/L CL Normal 104 LAB L501.6100 21.0-32.0 mmol/L Normal CO2 27.0 LAB L501.6200 5-15 Normal GAP 7 Performed By: #### L100.0100, L700.5500, L503.0105, L506.1000, L101.9900, L500.4050, L501.9520, L503.6150, L503.6550 #### [facility] [address] [place], [place], [id number] THYROID STIM HORMONE Collected: 03/10/2018 Status: F Source: [place] (TSH) 4:19 PM [facility] REPOSITORY TYPE CODE TESTS RESULT OUT OF RANGE REFERENCE UNITS LAB L501.9520 0.358-3.74 uIU/mL Normal TSH 1.46 Performed By: #### L100.0100, L700.5500, L503.0105, L506.1000, L101.9900, L500.4050, L501.9520, L503.6150, L503.6550 #### [facility] [address] [place], [place], [id number] IRON Collected: 03/10/2018 Status: F Source: [place] 4:19 PM [facility] REPOSITORY TYPE CODE TESTS RESULT OUT OF RANGE REFERENCE UNITS LAB L503.6150 50-170 ug/dL Normal IRON 68 Performed By: #### L100.0100, L700.5500, L503.0105, L506.1000, L101.9900, L500.4050, L501.9520, L503.6150, L503.6550 #### [facility] [address] [place], [place], [id number] FERRITIN Collected: 03/10/2018 Status: F Source: [place] 4:19 PM [facility] REPOSITORY TYPE CODE TESTS RESULT OUT OF RANGE REFERENCE UNITS LAB L503.6550 8-252 ng/mL Normal FERRITIN 101 Performed By: #### L100.0100, L700.5500, L503.0105, L506.1000, L101.9900, L500.4050, L501.9520, L503.6150, L503.6550 #### [facility] [address] [place], [place], [id number] CORTISOL SERUM Collected: 03/10/2018 Status: F Source: [place] 4:19 PM [facility] REPOSITORY TYPE CODE TESTS RESULT OUT OF RANGE REFERENCE UNITS LAB L509.6000 3.09-22.40 ug/dL Normal CORTISOL 4.20 Result Comment: Adult (AM) 4.30 - 22.40 ug/dL Adult (PM) 3.09 - 16.66 ug/dL Performed By: #### L509.6000 #### [facility] [address] [place], [address] CRP Collected: 03/10/2018 Status: F Source: [place] 4:19 PM [facility] REPOSITORY TYPE CODE TESTS RESULT OUT OF RANGE REFERENCE UNITS LAB L501.6710 0.0-3.0 mg/L Normal < 2.90 C-REACTIVE PROT Result Comment: C-Reactive Protein (CRP) provides useful information for the diagnosis, therapy and monitoring of inflammatory processes and associated diseases. For the evaluation of Relative Risk for Cardiovascular Disease, a High Sensitivity CRP (HSCRP) should be ordered. Performed By: #### L501.6710 #### [facility] [address] [place], [place], [address] EBV ACUTE PROF IGG Collected: 03/10/2018 Status: F Source: [place] / IGM 4:19 PM [facility] REPOSITORY TYPE CODE TESTS RESULT OUT OF RANGE REFERENCE UNITS LAB L3100.5900 0.0-35.9 U/mL Normal EB-VCA < 36.0 [id number] Result Comment: Negative <36.0 Equivocal 36.0 - 43.9 Positive >43.9 LAB L3100.6000 0.0-8.9 U/mL Normal EB-EA IgG <9.0 30295 Result Comment: Negative < 9.0 Equivocal 9.0 - 10.9 Positive >10.9 LAB L3100.6100 0.0-17.9 U/mL High EB-VCA 141.0 [id number] Result Comment: Negative <18.0 Equivocal 18.0 - 21.9 Positive >21.9 LAB L3100.6200 0.0-17.9 U/mL High EB-NAg 220.0 [id number] Result Comment: Negative <18.0 Equivocal 18.0 - 21.9 Positive >21.9 LAB L3100.6300 . INTERPRETATION Normal Comment Result Comment: EBV Interpretation Chart Interpretation EBV-IgM EA(D)-IgG VCA-IgG EBNA-IgG EBV Seronegative - - - - Early Phase + - - - Acute Primary + +or- + - Infection Convalescence/Past - +or- + + Infection Reactivated +or- + + + Infection + Antibody Present - Antibody Absent Performed at: - [facility] [address] [id number] [employer] Wall Applicator: Kit Person PhD, Phone: [phone] Performed By: #### L3100.5850 #### [facility] (refer to report for specific site) refer to report for address and phone number MG BREAST TOMOSYNTHESIS Observed: 01/31/2018 Status: F Source: [facility] SCR BL 12:00 AM SYSTEM REPOSITORY Patient Name: SOLO CRANDALL Mammography Exam Date/Time 01/31/2018 09:16:30 EST Exam MG Breast Tomosynthesis BI Scr Ordering Physician MELANY MARIE Accession Number [id number] CPT4 Codes 28080 (MG Breast Tomosynthesis Scr Bl), 44159 (MG MAMMO 2D SCREENING) Reason For Exam screening Report PATIENT HISTORY: Family history of breast cancer at age 64 in paternal aunt, unknown cancer at age 40 in paternal grandmother, unknown cancer at age 60 in maternal uncle, unknown cancer at age 58 in maternal uncle. Took hormonal contraceptives for 6 years. Took progesterone for 6 months beginning at age 40. Patient is a former smoker. Patient's BMI is 19.8. TIME SINCE LAST MAMMOGRAM: Last mammogram was performed 1 year ago. REASON FOR EXAM: screening, asymptomatic. PROCEDURE: MG BREAST TOMOSYNTHESIS BL SCR: JANUARY 31, 2018 - 2D/3D Procedure 3D Bilateral CC and MLO view(s) were taken. 2D Bilateral CC and MLO view(s) were taken. Prior study comparison: January 28, 2017, bilateral MG breast tomosynthesis bl performed at [facility]. January 16, 2016, bilateral MG breast tomosynthesis bl performed at [facility]. May 27, 2015, bilateral MG mammogram digital screening performed at [facility]. May 23, 2014, bilateral MG mammogram digital screening performed at [facility]. TISSUE DENSITY: The breast tissue is heterogeneously dense, which could obscure underlying abnormalities. . FINDINGS: No suspicious masses, architectural distortions or suspiciously clustered microcalcifications are identified. There is no evidence of skin thickening or nipple retraction. There are no significant changes when compared with prior studies. Markings on images: BB's = Nipples; skin lesions Open [place] = Palpable Line = Scar 2D digital mammography and tomosynthesis imaging were performed and reviewed with CAD. ASSESSMENT: Category 1 Negative No mammographic evidence of malignancy. RECOMMENDATION: Routine screening mammogram of both breasts in 1 year. . Report Dictated on Cancer Risk Assessment: This risk assessment is based on patient provided information collected in a risk survey taken at the time of this examination. Lifetime breast cancer risk: 11% - If greater than or equal to 20%, consider annual mammogram and annual screening Breast MRI or follow up in high risk clinic. Is the patient at elevated risk based on the HBOC criteria? No (Hereditary Breast and Ovarian Cancer) - If yes, consider genetic counseling and testing with high risk follow up. HNPCC mutation risk (Espinoza Syndrome): 1% - if greater than or equal to 5%, consider genetic counseling, testing and screening colonoscopy. Final Signed Date and Time: 01/31/2018 11:37 am Signed by: MD VIZCAINO LAURA SINUS/FACIAL BONE Observed: 08/25/2017 Status: F Source: [place] 7:23 AM [facility] REPOSITORY [facility] Imaging Services [address] [place] [address] Sinus/Facial Bone MR#: [id number] Acct: [id number] Name: CRANDALLSOLO MEI Chayo Rep #: [id number] : 1975 F 42 From: Juan Sorenson MD PCP: Juan Cheema MD Status: REG CLI Study: Sinus/Facial Bone Date of Exam: 08/25/17 Exam# [id number] Ordering Dr: Josh Pineda MD STUDY: CT MAXILLOFACIAL SINUSES REASON FOR EXAM: Female, 42 years old. Chronic sinusitis. RADIATION DOSAGE (If Supplied By Facility): CTDIvol = ( 33.06 ) mGy, DLP = ( 858.64 ) mGycm TECHNIQUE: The patient was scanned in a multi detector CT scanner. High resolution axial imaging was performed without the administration of intravenous contrast material. Sagittal and coronal images were reconstructed. Individualized dose optimization techniques were used for this CT. COMPARISON: Prior comparison studies are not available for review at this time. FINDINGS: FRONTAL SINUSES: Normal aeration, without mucosal inflammatory disease. ETHMOIDAL SINUSES: Normal aeration, without mucosal inflammatory disease. MAXILLARY SINUSES: Normal aeration, without mucosal inflammatory disease. SPHENOIDAL SINUSES: The right sphenoid sinus is small in size, while the left sphenoid extends across the midline. There is mild mucoperiosteal thickening at the anterior inferior margin of the left sphenoid sinus. Minor mucoperiosteal thickening in the posterior superior nasal passages. There is patency of the bilateral maxillary infundibuli with normal uncinate processes, ethmoid bullae, and hiatus semilunaris. Normal bilateral middle turbinates. Normal bilateral inferior turbinates. Normal midline nasal septum. There is patency of the bilateral nasal airways. The visualized osseous structures are normal. The visualized bilateral orbital contents are normal. CT/Sinus/Facial Bone IMPRESSION: Mild mucoperiosteal thickening in the anterior margin of the hypertrophied left sphenoid sinus. Electronically Signed: Fran Sorenson MD at 9:18 EDT , Service support , CC: Juan Cheema MD; Josh Pineda MD Medical Asst: Signed ALLERGIES ALLERGIES DATE TYPE / CODE NAME / CODE REACTION SEVERITY SOURCE 01/25/2017 Drug Sulfa Rash Unknown [facility] Allergy/416 (Sulfonamide [facility] 835902(SNOM Antibiotics)/F Repository ED CT) 554805789(RXNO RM) 01/25/2017 Drug aspirin/E80071 Shortness of Unknown [facility] Allergy/416 1587(RXNORM) breath Hospital 056892(SNOM Repository ED CT) 01/03/2013 DRUG ASPIRIN SHORTNESS OF [facility] INGREDI/419 [facility] 576217(SNOM Repository ED CT) 01/03/2013 Drug SULFA RASH [facility] Class/47003 (SULFONAMIDE [facility] [place] 1003(SNOMED ANTIBIOTICS) Repository CT) ENCOUNTERS ENCOUNTERS ADMIT/DISCHARGE ACCOUNT NUMBER ADMITTING ENCOUNTER LOCATION SOURCE CLASS 04/05/2018 [id number] [facility] ding:MFPLAB Repository 03/16/2018 [id number] [facility] ding:MRI Repository 03/12/2018/03/13/20 [id number] Ambulatory [address] Repository 03/10/2018 [id number] [facility] ding:MFPLAB Repository 01/31/2018 [id number] [facility] Repository 08/25/2017 [id number] [facility] ding:CT Repository PAYERS PAYERS ENCOUNTER GUARANTOR PAYER SUBSCRIBER SOURCE 04/05/2018 SOLO Dom[place] Primary SOLO P [place] [id number] N Insurance:CORESOURCEPolic ROWLANDDOB: [facility] PATRICE y Number: [id number] [id number] Repository [address]Tor: (330) Date:3923-18-92FO [phone] (HP) [address] [place] [id number]: 04/05/2018 Secondary Insurance:SELF NOT GIVENUNK [place] PAY INSURANCEPolicy Community Number: Effective Hospital Date:2018-04-05 Repository 03/16/2018 SOLO Domingo Primary SOLO P [place] [id number] N Insurance:CORESOURCEPolic LOWELLDOB: [facility] y Number: [id number], [place] [id number] Repository [address]Mvj: (330) Date:1755-21-09ML [phone] (HP) [address] [place] [id number]: 03/16/2018 Secondary Insurance:SELF NOT GIVENUNK [place] PAY INSURANCEPolicy Community Number: Effective Hospital Date:2018-03-14 Repository 03/10/2018 SOLO Domingo Primary SOLO P [place] [id number] N Insurance:CORESOURCEPolic ROWLANDDOB: Community PATRICE y Number: [id number] [place], [place] [id number] Repository [address]Brx: (330) Date:6922-56-16QD [phone] (HP) [address] [place] [id number]: 03/10/2018 Secondary Insurance:SELF NOT GIVENUNK [place] PAY INSURANCEPolicy Community Number: Effective Hospital Date:2018-03-10 Repository 01/31/2018 [facility] [id number] [facility] [place] Number: Effective Date: [address]Vfv: (HP) 08/25/2017 SOLO P Primary SOLO P [place] [id number] N Insurance:CORESOURCEPolic ROWLANDDOB: [facility] y Number: [id number], [place] [id number] Repository [address]Yob: (330) Date:8495-12-08TU [phone] (HP) [address] [address]GV: 08/25/2017 Secondary Insurance:SELF NOT GIVENUNK Les[place] PAY INSURANCEPolicy Community Number: Effective Hospital Date:2017-08-13 Repository
== END ==
PROVIDERS: Family Provider Family Medicine; PCP Family Medicine; Visit Provider Family Medicine
DX: M79.10 Myalgia, unspecified site (principal); R53.83 Other fatigue
CPT/HCPCS: 36415; 80053; 81291; 82306; 82550; 82728; 83540; 83735; 84443; 84550; 85025; 85652; 86038; 86140; 86431; 86618; 86663; 86664; 86665

== ENCOUNTER → 2018-04-12 12:27 | Outpatient (CLI) | payer OTHER, SELFPAY ==
--- NOTE | 2018-04-12 12:30 | RAD_ITS ---
STUDY: X-RAY - ABDOMEN/PELVIS REASON FOR EXAM: Female, 43 years old. Left upper quadrant pain TECHNIQUE: AP supine and upright views of the abdomen and pelvis. COMPARISON: None. FINDINGS: Normal visualized lung bases. There is an unremarkable bowel gas pattern. There is no demonstrated free abdominal air. The visualized liver, spleen and kidneys are grossly normal in size and morphology. Normal soft tissue structures. Normal visualized osseous structures. RAD/Abd Inc Decub and/or Erect IMPRESSION: Normal x-ray examination of the abdomen and pelvis. Electronically Signed: Carlos Latham MD at 9:47 EST Tel , Service support ,
--- NOTE | 2018-04-12 12:30 | RAD_ITS ---
STUDY: X-RAY CHEST REASON FOR EXAM: Female, 43 years old. Left upper quadrant pain TECHNIQUE: PA and lateral views of the chest. COMPARISON: None. FINDINGS: The lungs are clear and expanded. There is no demonstrated pleural abnormality. Normal size heart. Normal mediastinum and umesh. Normal visualized pulmonary arteries. Normal visualized aortic arch and descending thoracic aorta. Normal visualized thoracic spine. Normal visualized ribs, clavicles, and shoulders. There is no demonstrated abnormality of the visualized soft tissue structures of the upper abdomen. RAD/Chest PA and Lateral IMPRESSION: Normal x-ray examination of the chest. Electronically Signed: Sudhakar Jacobo MD at 23:58 EST , Service support ,
== END ==
PROVIDERS: Family Provider Family Medicine; PCP Family Medicine; Referring Provider Family Medicine; Visit Provider Family Medicine
DX: R10.12 Left upper quadrant pain (principal)
CPT/HCPCS: 71046; 74019

== ENCOUNTER → 2018-04-14 14:11 | Outpatient (CLI) | payer OTHER, SELFPAY ==
[2017-01-25 09:18] VITALS: BMI 20.3
== END ==
PROVIDERS: Family Provider Family Medicine; PCP Family Medicine; Referring Provider Family Medicine; Visit Provider Family Medicine
DX: R10.9 Unspecified abdominal pain (principal)
CPT/HCPCS: 87086

== ENCOUNTER → 2018-04-19 08:05 | Outpatient (CLI) | payer OTHER, SELFPAY ==
[2018-04-19 10:42] LABS: Vitamin B12 669 pg/mL (211-911)
== END ==
PROVIDERS: Family Provider Family Medicine; PCP Family Medicine; Visit Provider Family Medicine
DX: E72.12 Methylenetetrahydrofolate reductase deficiency (principal)
CPT/HCPCS: 36415; 82607; 82746; 83090

== ENCOUNTER → 2018-05-24 07:11 | Outpatient (CLI) | payer OTHER, SELFPAY ==
[2018-05-24 08:09] LABS: Insulin 4.2 mU/L (2.6-37.6)
[2018-05-24 08:13] LABS: Anion Gap 6 (5-15); BUN 17 mg/dL (7-18); Calcium,Total 8.3 mg/dL (8.5-10.1); Chloride 107 mmol/L (98-107); Cholesterol 163 mg/dL (200); Creatinine, Serum 0.85 mg/dL (0.55-1.02); EST Glomerular Filtration Rate 78 mL/min (>60); Est Glom Filt Rate - Afr Amer 94 mL/min (>60); Free T3 2.8 pg/mL (2.18-3.98); Glucose 80 mg/dL (74-106); High Density Lipoprotein 63 mg/dL; Potassium 3.8 mmol/L (3.5-5.1); Sodium Level 141 mmol/L (136-145); T4 Free Direct 1.02 ng/dL (0.76-1.46); Thyroid Stim Hormone (TSH) 2.33 uIU/mL (0.358-3.74); Triglycerides 92 mg/dL; Very Low Density Lipoprotein 18 mg/dL (5-40)
[2018-05-25 16:40] LABS: Adrenocorticotropic Hormone 14.1 pg/mL (7.2-63.3); Thyroid Peroxidase AB 10 IU/mL (0-34)
== END ==
PROVIDERS: Family Provider Family Medicine; PCP Family Medicine; Referring Provider Internal Medicine Endocrinology, Diabetes & Metabolism; Visit Provider Internal Medicine Endocrinology, Diabetes & Metabolism
DX: R53.83 Other fatigue (principal); Z83.49 Family history of other endocrine, nutritional and metabolic diseases
CPT/HCPCS: 36415; 80048; 80061; 82024; 82533; 83525; 84439; 84443; 84481; 86376

== ENCOUNTER 2020-03-04 17:50 | Emergency (ER) | payer OTHER, SELFPAY ==
[2020-03-04 17:51] VITALS: BP 143/80; PULSE 94; RESP 16; TEMP 36.3; O2SAT 98
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
[2020-03-04] MEDS: Diphth,Pertuss(Acell),Tet Vac 0.5 ML Vial IM (18:27)
== END 2020-03-04 18:41 | disposition home or self-care (01) ==
LOC: ED 18:41
PROVIDERS: Emergency Provider Emergency Medicine; PCP Family Medicine
DX: T23.032A Burn of unspecified degree of multiple left fingers (nail), not including thumb, initial encounter (principal); T31.0 Burns involving less than 10% of body surface; X19.XXXA Contact with other heat and hot substances, initial encounter; Y93.G3 Activity, cooking and baking; Y92.000 Kitchen of unspecified non-institutional (private) residence as the place of occurrence of the external cause; Y99.9 Unspecified external cause status; Z23 Encounter for immunization
CPT/HCPCS: 90715; 99283

== ENCOUNTER → 2023-09-03 | Outpatient (CLI) | payer BC, SELFPAY ==
[2023-09-03 11:00] LABS: Anion Gap 4 (5-15); BUN 11 mg/dL (7-18); BUN/Creat Ratio 12.8 RATIO (10-20); Calcium,Total 8.9 mg/dL (8.5-10.1); Chloride 105 mmol/L (98-107); Cholesterol 190 mg/dL (200); Creatinine, Serum 0.86 mg/dL (0.55-1.02); EST Glomerular Filtration Rate 75 mL/min (>60); Est Glom Filt Rate - Afr Amer 91 mL/min (>60); Glucose 82 mg/dL (74-106); High Density Lipoprotein 69 mg/dL; Potassium 3.9 mmol/L (3.5-5.1); Sodium Level 138 mmol/L (136-145); Thyroid Stim Hormone (TSH) 1.77 uIU/mL (0.358-3.74); Triglycerides 95 mg/dL; Very Low Density Lipoprotein 19 mg/dL (5-40)
== END | disposition home or self-care (01) ==
LOC: MTLAB 07:03
PROVIDERS: PCP Family Medicine; Referring Provider Family Medicine; Visit Provider Family Medicine
DX: Z13.1 Encounter for screening for diabetes mellitus (principal); Z13.29 Encounter for screening for other suspected endocrine disorder; Z13.220 Encounter for screening for lipoid disorders
CPT/HCPCS: 36415; 80048; 80061; 84443

== ENCOUNTER → 2024-03-22 | Outpatient (CLI) | payer BC, SELFPAY ==
[2024-03-22 19:09] LABS: CRP < 2.90 mg/L (0.0-3.0)
[2024-03-24 15:07] LABS: Endomysial Antibody IgA Negative (Negative); Immunoglobulin A 284 mg/dL (87-352); t-Transglutaminase IgA <2 U/mL (0-3)
== END | disposition home or self-care (01) ==
LOC: MTLAB 14:42
PROVIDERS: PCP Family Medicine; Referring Provider Internal Medicine Gastroenterology; Visit Provider Internal Medicine Gastroenterology
DX: R10.9 Unspecified abdominal pain (principal); R63.4 Abnormal weight loss
CPT/HCPCS: 36415; 82784; 83516; 86140; 86255

== ENCOUNTER → 2024-04-10 | Outpatient (CLI) | payer BC, SELFPAY ==
[2024-04-10 15:49] LABS: Erythrocyte Sedimentation Rate 4 mm/hr (0-30)
[2024-04-10 15:51] LABS: Absolute Lymphocyte Count 2.58 X10^3/uL (0.83-4.51); Absolute Neutrophil Count 5.4 X10^3/uL (2.0-7.7); Basophil% 1.1 % (0-1); Eosinophil# 0.09 X10^3/uL; Hematocrit 40.4 % (37-47); Hemoglobin 13.4 g/dL (12.0-15.0); Lymphocyte # 2.58 X10^3/ul (0.83-4.51); Lymphocyte % 29.2 % (19-41); Mean Corp Hgb Conc 33.2 g/dL (32-36); Mean Corpuscular Hgb 30.7 pg (27.0-32.0); Mean Corpuscular Volume 92.7 fL (81-99); Mean Platelet Vol. 11.2 fl (6.2-12.0); Monocyte# 0.68 X10^3/uL; Monocyte% 7.7 % (0-10); NRBC Flagged by Analyzer 0 % (0-5); Neutrophil # 5.35 X10^3/uL (2.7-7.7); Neutrophil % 60.7 % (47-70); Platelet Count 384 K/mm3 (150-450); RBC Distribution Width CV 12.4 % (11.6-14.6); RBC Distribution Width SD 42.8 fl (35.1-43.9); Red Blood Count 4.36 M/mm3 (4.2-5.4); White Blood Count 8.8 K/mm3 (4.4-11.0)
[2024-04-10 15:54] LABS: Vitamin B12 803 pg/mL (211-911); Vitamin D,25 Hydroxy 33.4 ng/mL
[2024-04-10 16:28] LABS: ALB/GLOB Ratio 1.2 RATIO (0.9-2.4); AST(SGOT) 18 U/L (15-37); Alanine Aminotransfer ALT/SGPT 26 U/L (13-56); Albumin, Serum 3.9 g/dL (3.2-5.0); Alkaline Phosphatase 78 U/L (45-117); Anion Gap 6 (5-15); BUN 12 mg/dL (7-18); BUN/Creat Ratio 14.4 RATIO (10-20); Calcium,Total 9.9 mg/dL (8.5-10.1); Chloride 105 mmol/L (98-107); Creatinine, Serum 0.84 mg/dL (0.55-1.02); EST Glomerular Filtration Rate 77 mL/min (>60); Est Glom Filt Rate - Afr Amer 93 mL/min (>60); Ferritin 103 ng/mL (8-252); Follicle Stimulating Hormone 60.8 mIU/mL; Free T3 2.6 pg/mL (2.18-3.98); Globulin 3.3 g/dL (2.2-4.2); Glucose 96 mg/dL (74-106); Iron 67 ug/dL (50-170); Luteinizing Hormone 43.7 mIU/mL; Magnesium 2.2 mg/dL (1.6-2.6); Potassium 3.9 mmol/L (3.5-5.1); Protein, Total 7.2 g/dL (6.4-8.2); Sodium Level 138 mmol/L (136-145); T4 Free Direct 1.12 ng/dL (0.76-1.46)
[2024-04-13 13:07] LABS: Prealbumin 24 mg/dL (12-34)
== END | disposition home or self-care (01) ==
LOC: MTLAB 12:41
PROVIDERS: PCP Family Medicine; Referring Provider Family Medicine; Visit Provider Family Medicine
DX: R23.2 Flushing (principal); R25.1 Tremor, unspecified; R63.4 Abnormal weight loss
CPT/HCPCS: 80053; 82306; 82607; 82728; 83001; 83002; 83540; 83735; 84134; 84439; 84443; 84481; 85025; 85652

== ENCOUNTER → 2024-04-14 | Outpatient (CLI) | payer BC, SELFPAY | END | disposition home or self-care (01) | LOC: MTLAB 16:10 | PROVIDERS: PCP Family Medicine; Referring Provider Family Medicine; Visit Provider Family Medicine | DX: R23.2 Flushing (principal) | CPT/HCPCS: 36415; 82533 ==

== ENCOUNTER → 2024-08-02 | Outpatient (CLI) | payer BC, SELFPAY ==
--- NOTE | 2024-08-02 14:10 | BI_ITS ---
EXAM: DIAG MAMM W/CAD, BILAT; BREAST LIMITED UNILATERAL; BILAT BRST YOLANDA STAND ALONE 08/02/2024 CLINICAL HISTORY: 49-year-old female presents for follow-up examination of a right breast mass visualized on an outside examination of 08/24/2023. No family history of breast cancer TECHNIQUE: Bilateral Diagnostic digital breast tomosynthesis with 2D and 3D images. Computer aided detection. Also, targeted right breast ultrasound was performed. COMPARISON: Prior exam(s) dated 08/24/2023, 06/30/2023, 05/22/2022, 03/21/2021, 02/26/2020. FINDINGS: MAMMOGRAM: TISSUE DENSITY: The breast tissue is heterogenously dense, which may obscure small masses. The mammogram demonstrates that the patient has dense breasts. Supplemental screening with whole breast ultrasound or MRI may be considered for further evaluation. Right breast: 1. Follow-up examination performed for the mass in the upper-outer right breast visualized on the outside examination of 08/24/2023. On the present examination, the mass in the upper-outer right breast at posterior depth is not well visualized, likely due to obscuring dense breast tissue. 2. The focal asymmetry in the central inner right breast at posterior depth, has not significantly changed when compared to multiple priors. Left breast: There are no suspicious findings in the left breast. There are multiple bilateral circumscribed masses, likely representing multiple cysts. ULTRASOUND: 1. Targeted right breast ultrasound performed for the previously visualized cyst cluster in the right breast on examination of 08/24/2023. On the present examination there is a cyst cluster in the right breast at 10 o'clock 12 cm from the nipple measuring 0.7 x 0.7 x 0.3 cm. This has decreased in size when compared to prior. 2. There is a cyst with an internal septation surrounded by dense breast tissue in the right breast at 3:30 4 cm from the nipple measuring 0.8 x 0.7 x 0.4 cm. This is a correlate for the mammographic finding. BI/Bilat Brst Yolanda Stand Alone IMPRESSION: 1. Interval decrease in size of the cyst cluster in the right breast at 10 o'c lock 12 cm from the nipple. 2. There are multiple bilateral circumscribed masses, likely representing cyst s. 3. There is no evidence of malignancy in either breast. OVERALL FINAL ASSESSMENT: BIRADS 1 NEGATIVE. RECOMMENDATION: Routine annual follow-up in 1 Year A letter with findings and recommendations will be mailed to the patient. Reading Location: [id number]
== END | disposition home or self-care (01) ==
LOC: OPBI 13:53
PROVIDERS: PCP Family Medicine; Referring Provider Family Medicine; Visit Provider Family Medicine
DX: R92.8 Other abnormal and inconclusive findings on diagnostic imaging of breast (principal)
CPT/HCPCS: 76642; 77062; 77066; G0279

== ENCOUNTER → 2025-02-07 | Outpatient (CLI) | payer BC, SELFPAY ==
[2025-02-09 11:08] LABS: Fats, Neutral Normal (.); Fats, Total Normal (.)
[2025-02-11 23:07] LABS: Pancreatic Elastase, Fecal > 800 (>200)
== END | disposition home or self-care (01) ==
LOC: MTLAB 09:24
PROVIDERS: PCP Family Medicine; Referring Provider Internal Medicine Gastroenterology; Visit Provider Internal Medicine Gastroenterology
DX: R19.7 Diarrhea, unspecified (principal)
CPT/HCPCS: 82653; 82705